=== PATIENT | male | born 1995 | race Caucasian/White ===

== ENCOUNTER → 2018-03-20 | Outpatient (CLI) | payer OTHER ==
[2018-03-20 10:21] LABS: HEMATOCRIT 44.5 % (42.0-52.0); HEMOGLOBIN 15.6 g/dl (13.5-17.5); MEAN CORPUSCULAR HEMOGLOBIN 28.8 pg (27.0-33.0); MEAN CORPUSCULAR HGB CONC 35.1 g/dl (32.0-36.5); MEAN CORPUSCULAR VOLUME 82.1 fl (80.0-96.0); PLATELET COUNT, AUTOMATED 180 10^3/uL (150-450); RED BLOOD COUNT 5.42 10^6/uL (4.30-6.10); RED CELL DISTRIBUTION WIDTH 12.1 % (11.5-14.5); WHITE BLOOD COUNT 6.7 10^3/uL (4.0-10.0)
[2018-03-20 10:34] LABS: ALBUMIN 4.4 GM/DL (3.2-5.2); ALBUMIN/GLOBULIN RATIO 1.33 (1.00-1.93); ALKALINE PHOSPHATASE 148 U/L (45-117); ALT/SGPT 156 U/L (12-78); ANION GAP 8 MEQ/L (8-16); AST/SGOT 101 U/L (7-37); BILIRUBIN,TOTAL 0.6 MG/DL (0.2-1.0); BLOOD UREA NITROGEN 11 MG/DL (7-18); CALCIUM LEVEL 9.2 MG/DL (8.5-10.1); CARBON DIOXIDE LEVEL 27 MEQ/L (21-32); CHLORIDE LEVEL 105 MEQ/L (98-107); CREATININE FOR GFR 0.98 MG/DL (0.70-1.30); GLOMERULAR FILTRATION RATE > 60.0 (>60); GLUCOSE, FASTING 90 MG/DL (70-100); POTASSIUM SERUM 4.3 MEQ/L (3.5-5.1); SODIUM LEVEL 140 MEQ/L (136-145); TOTAL PROTEIN 7.7 GM/DL (6.4-8.2)
[2018-03-20 10:47] LABS: ADD MANUAL DIFFER YES; DIFF SLIDE NUMBER 95; POSITIVE MORPH POS FLAG
[2018-03-20 11:53] LABS: ATYPICAL LYMPH 25 % (0-5); BASOPHILS 2 % (0-4); EOSINOPHILS 5 % (0-5); LYMPHOCYTES 23 % (16-52); MONOCYTES 11 % (0-8); NEUTROPHILS 34 % (35-75)
[2018-03-20 11:54] LABS: PLATELET ESTIMATE NORMAL (NORMAL)
== END ==
LOC: M WUC 08:49
DX: B27.90 Infectious mononucleosis, unspecified without complication (principal)
CPT/HCPCS: 80053

== ENCOUNTER → 2022-07-29 | Outpatient (REF) | payer OTHER | LOC: M LAB REF 16:43 | PROVIDERS: ATTEND Surgery | DX: L72.0 Epidermal cyst (principal) ==